=== PATIENT | female | born 1955 | race Caucasian/White ===

== ENCOUNTER → 2017-11-30 | Outpatient (CLI) | payer OTHER ==
[~2017-11-30] MED LIST: AMLO-111 PO; CALC500T76 PO; HYDR-2963 PO; IBUP-56 PO; LEVO50TA86 PO; LISI-362 PO; MULT1CAP41 PO; SIMV-49 PO; [UNRECOGNIZED DRUG - CODE] PO
--- NOTE | 2017-12-01 16:07 | RADIOLOGY IMAGING REPORT ---
FACILITY: [facility] - [place] PATIENT NAME: NOEMÍ PIEDRA : [id number] MR: [id number] V: [id number] EXAM DATE: [id number] ORDERING PHYSICIAN: JULIANN REY TECHNOLOGIST: Shannon Duran PROCEDURE: MAMMOGRAM SCREENING RIGHT UNILATERAL WITH CAD ASSISTED INTERPRETATION & 3D TOMOSYNTHESIS COMPARISON: Prior mammograms. INDICATIONS: SCREENING FINDINGS: The Right breast is heterogeneously dense. A few benign appearing calcifications are scattered in the Right breast. Fibroglandular densities in the Right breast are essentially unchanged compared to previous. DIAGNOSTIC CATEGORY 1--NEGATIVE. RECOMMENDATIONS: ROUTINE MAMMOGRAM AND CLINICAL EVALUATION IN 1 YR. IMPRESSION: BIRADS 1: Negative. Dictated by: Kory Li M.D. on 12/01/2017 at 14:12 Transcribed by: JAKE on 12/01/2017 at 14:18 Approved by: Kory Li M.D. on 12/01/2017 at 16:05 [facility]
== END ==
LOC: MAMO 00:38
PROVIDERS: ATTEND Obstetrics & Gynecology
DX: Z12.31 Encounter for screening mammogram for malignant neoplasm of breast (principal)
CPT/HCPCS: 77063; 77067